=== PATIENT | male | born 1960 | race Caucasian/White ===

== ENCOUNTER 2022-06-14 11:00 | Observation (INO) ==
[2022-06-14 11:48] LABS: Basophils # 0.1 10*3/uL (0.0-0.2); Basophils % 0.7 % (0.0-0.8); Hematocrit 34.3 VOL% (42.0-52.0); Hemoglobin 11.2 GM/DL (14.0-18.0); Immature Granulocytes % 0.6 %; Immature Granulocytes Absolute 0.08 #; Lymphocytes # 1.7 10*3/uL (1.4-4.0); Lymphocytes % 12.8 % (21.2-54.2); Mean Corpuscular HGB Conc 32.7 GM/DL (32-36); Mean Corpuscular Volume 98.3 FL (87-102); Mean Platelet Volume 9.2 FL (9.6-12.0); Monocytes % 7.7 % (1.7-12.7); Neutrophils % 78.2 % (38.7-73.9); Platelet Count 443 T/CUMM (130-400); Red Blood Count 3.49 MC/CUMM (3.8-5.5); Red Cell Distribution Width 13.5 % (9.3-17.3); White Blood Count 13.5 T/CUMM (4-12)
[2022-06-14 12:37] LABS: Alanine Aminotransferase 53 U/L (16-61); Alkaline Phosphatase 212 U/L (45-117); Aspartate Amino Transferase 88 U/L (0-37); Blood Urea Nitrogen 22 MG/DL (7-18); Calcium 8.4 MG/DL (8.5-10.1); Carbon Dioxide 17 MMOL/L (21-32); Chloride 100 MMOL/L (98-107); Glucose 150 MG/DL (74-106); Osmolality,Calculated 280.7 MOS/KG (273-304); Potassium 4.8 MMOL/L (3.5-5.1); Sodium 138 MMOL/L (136-145); Total Protein 8.3 G/DL (6.4-8.2); Uric Acid 15.6 MG/DL (3.5-7.2)
[2022-06-14] MEDS ORDERED: SODIUM CHLORIDE 0.9% 2,000 ML IV STA (13:33)
[2022-06-14] MEDS ORDERED: THIAMINE 200 MG/2 ML VIAL IV STA (14:48)
[2022-06-14] MEDS ORDERED: GLUCAGON 1 MG VIAL IM PRN (15:29)
[2022-06-14] MEDS ORDERED: ACETAMINOPHEN 325 MG TABLET PO PRN (15:29)
[2022-06-14] MEDS ORDERED: ONDANSETRON 4 MG/2 ML VIAL IV PRN (15:29)
[2022-06-14] MEDS ORDERED: MULTIVITAMIN IV SCH (15:30)
[2022-06-14] MEDS ORDERED: SODIUM CHLORIDE 0.9% IV SCH (15:30)
[2022-06-14] MEDS ORDERED: THIAMINE IV SCH (15:30)
[2022-06-14] MEDS ORDERED: COLCHICINE 0.6 MG CAPSULE PO ONE (15:32)
[2022-06-14] MEDS ORDERED: ENOXAPARIN 40 MG/0.4 ML SYRINGE SUBCUT SCH (16:00)
[2022-06-14] MEDS ORDERED: THIAMINE INJ 100 MG in SODIUM CHLORIDE 0.9% 1,000 ML IV SCH (16:00)
[2022-06-14] MEDS ORDERED: DEXTROSE 10% 250 ML BAG IV PRN (16:05)
[2022-06-14] MEDS: LORazepam 1 MG TABLET PO PRN (16:52)
[2022-06-14] MEDS: [UNRECOGNIZED DRUG - OTHER] IV SCH ×2 (19:43→22:34)
[2022-06-14] MEDS: THIAMINE 100 MG IV SCH ×2 (19:43→22:34)
[2022-06-14] MEDS: SODIUM CHLORIDE 0.9% IV SCH ×2 (19:43→22:34)
[2022-06-14] MEDS ORDERED: MELATONIN 3 MG TABLET PO PRN (20:14)
[2022-06-14] MEDS: predniSONE 10 MG TABLET PO SCH (20:45)
[2022-06-15 05:05] LABS: Bacteria,Urine Occasional /HPF (Few); Hyaline Casts,Urine 3 /LPF (0-3); Mucus,Urine Occasional /LPF (Occasional); RBC,Urine <1 /HPF (0-4); Squamous Epithelial Cell,Urine Occasional /HPF (0-10)
[2022-06-15 05:08] LABS: Bilirubin,Urine Small mg/dL (Negative); Blood, Urine Trace mg/dL (Negative); Glucose,Urine (UA) Negative (Negative); Ketones,Urine 15 mg/dL (Negative); Nitrite,Urine Negative (Negative); Protein,Urine Negative (Negative); Urine Appearance Clear (Clear); Urine Color Yellow (Yellow); Urine Specific Gravity 1.015 (1.001-1.035); Urine pH 5.5 (4.5-8.0)
[2022-06-15 06:15] LABS: Basophils % 0.4 % (0.0-0.8); Eosinophils % 0.1 % (0.00-10.9); Hematocrit 24.2 VOL% (42.0-52.0); Immature Granulocytes % 0.5 %; Immature Granulocytes Absolute 0.05 #; Lymphocytes # 0.7 10*3/uL (1.4-4.0); Lymphocytes % 7.8 % (21.2-54.2); Mean Corpuscular HGB Conc 33.1 GM/DL (32-36); Mean Corpuscular Volume 97.2 FL (87-102); Mean Platelet Volume 9.4 FL (9.6-12.0); Monocytes # 0.7 10*3/uL (0.11-0.8); Monocytes % 8.1 % (1.7-12.7); Neutrophils % 83.1 % (38.7-73.9); Platelet Count 237 T/CUMM (130-400); Red Blood Count 2.49 MC/CUMM (3.8-5.5); Red Cell Distribution Width 13.7 % (9.3-17.3); White Blood Count 9.1 T/CUMM (4-12)
[2022-06-15 06:44] LABS: Osmolality,Calculated 273.2 MOS/KG (273-304); Risk Ratio 4.19
[2022-06-15] MEDS: predniSONE 10 MG TABLET PO SCH (08:06)
[2022-06-15] MEDS: [UNRECOGNIZED DRUG - OTHER] IV SCH (08:11)
[2022-06-15] MEDS: THIAMINE 100 MG IV SCH (08:11)
[2022-06-15] MEDS: SODIUM CHLORIDE 0.9% IV SCH (08:11)
[2022-06-15 08:14] VITALS: BP 149/81
[2022-06-15] MEDS ORDERED: PANTOPRAZOLE 40 MG TABLET PO SCH (09:00)
[2022-06-15] MEDS ORDERED: atenoloL 50 MG TABLET PO SCH (09:00)
[2022-06-15] MEDS ORDERED: COLCHICINE 0.6 MG CAPSULE PO SCH (09:00)
[2022-06-15] MEDS: LORazepam 1 MG TABLET PO PRN (09:10)
[2022-06-15 10:22] LABS: Basophils % 0.2 % (0.0-0.8); Eosinophils % 0.1 % (0.00-10.9); Hemoglobin 8.1 GM/DL (14.0-18.0); Immature Granulocytes % 0.6 %; Immature Granulocytes Absolute 0.06 #; Lymphocytes # 0.8 10*3/uL (1.4-4.0); Lymphocytes % 8.4 % (21.2-54.2); Mean Corpuscular HGB Conc 32.4 GM/DL (32-36); Mean Corpuscular Volume 99.6 FL (87-102); Mean Platelet Volume 9.2 FL (9.6-12.0); Monocytes # 0.7 10*3/uL (0.11-0.8); Monocytes % 7.6 % (1.7-12.7); Neutrophils % 83.1 % (38.7-73.9); Platelet Count 237 T/CUMM (130-400); Red Blood Count 2.51 MC/CUMM (3.8-5.5); Red Cell Distribution Width 13.6 % (9.3-17.3); White Blood Count 9.5 T/CUMM (4-12)
== END 2022-06-15 12:33 | disposition home or self-care (01) ==
LOC: N.ED 11:00 → SUATTDRO 15:29 → N.EDINP 15:29 → INTOOBSV 15:29 → N.5E 16:56
PROVIDERS: ADMIT Emergency Medicine; ATTEND Internal Medicine

== ENCOUNTER 2022-12-10 14:39 | Inpatient (IN) ==
[2022-12-10] MEDS ORDERED: SODIUM CHLORIDE 0.9% 1,000 ML IV STA ×2 (15:37→18:17)
[2022-12-10 16:21] LABS: Basophils % 0.1 % (0.0-0.8); Eosinophils % 0.1 % (0.00-10.9); Hematocrit 22.4 VOL% (42.0-52.0); Hemoglobin 7.2 GM/DL (14.0-18.0); Immature Granulocytes % 1.4 %; Immature Granulocytes Absolute 0.24 #; Lymphocytes % 5.8 % (21.2-54.2); Mean Corpuscular HGB Conc 32.1 GM/DL (32-36); Mean Corpuscular Volume 98.2 FL (87-102); Mean Platelet Volume 10.9 FL (9.6-12.0); Monocytes # 0.2 10*3/uL (0.11-0.8); Monocytes % 1.4 % (1.7-12.7); Neutrophils % 91.2 % (38.7-73.9); Platelet Count 188 T/CUMM (130-400); Red Blood Count 2.28 MC/CUMM (3.8-5.5); Red Cell Distribution Width 15.9 % (9.3-17.3); White Blood Count 17.2 T/CUMM (4-12)
[2022-12-10 16:26] LABS: Bilirubin,Urine Moderate mg/dL (Negative); Blood, Urine Large mg/dL (Negative); Glucose,Urine (UA) Negative (Negative); Ketones,Urine 15 mg/dL (Negative); Nitrite,Urine Negative (Negative); Protein,Urine 100 mg/dL (Negative); Urine Appearance Clear (Clear); Urine Color Dark yellow (Yellow); Urine Urobilinogen 0.2 eU/dL (<2.0); Urine pH 5.5 (4.5-8.0)
[2022-12-10 16:31] LABS: Mucus,Urine Occasional /LPF (Occasional); RBC,Urine 76 /HPF (0-4); Squamous Epithelial Cell,Urine Occasional /HPF (0-10)
[2022-12-10 16:41] LABS: Calcium 7.9 MG/DL (8.5-10.1); Osmolality,Calculated 284.5 MOS/KG (273-304); Potassium 3.1 MMOL/L (3.5-5.1)
[2022-12-10] MEDS ORDERED: LIDOCAINE 2% TOP JELLY 20 ML VIAL INTRAURETH ONE (17:07)
[2022-12-10 17:12] LABS: Band Neutrophils 2 % (0-10); Lymphocytes 3 % (20-55); Nucleated Red Blood Cells 1 /100 WBC (0-5); Total Cells Counted 100
[2022-12-10 17:13] LABS: Platelet Estimate Adequate
[2022-12-10] MEDS ORDERED: SODIUM CHLORIDE 0.9% 1,000 ML IV PRN (17:30)
[2022-12-10] MEDS ORDERED: POTASSIUM CHLORIDE 20 MEQ TABLET PO STA (17:32)
[2022-12-10] MEDS ORDERED: SIMETHICONE CHEW 125 MG TABLET PO PRN (17:56)
[2022-12-10] MEDS ORDERED: CALCIUM CARBONATE CHEW 500 MG TABLET PO PRN (17:56)
[2022-12-10] MEDS ORDERED: LACTULOSE 20 GM/30 ML UDCUP PO PRN (17:56)
[2022-12-10] MEDS ORDERED: BISACODYL 5 MG TABLET PO PRN (17:56)
[2022-12-10] MEDS ORDERED: ONDANSETRON 4 MG/2 ML VIAL IV PRN (17:56)
[2022-12-10] MEDS ORDERED: ALUMINUM/MAGNES/SIMETH MAX STR 30 ML UDCUP PO PRN (17:56)
[2022-12-10] MEDS ORDERED: SODIUM BICARBONATE 50 MEQ/50 ML VIAL IV STA (18:06)
[2022-12-10] MEDS ORDERED: MAGNESIUM SULF RIDER 2 GM/50 ML PREMIX IV PRN (18:07)
[2022-12-10] MEDS ORDERED: POTASSIUM CHLORIDE RIDER 10 MEQ/100 ML PREMIX IV PRN (18:07)
[2022-12-10] MEDS ORDERED: MAGNESIUM SULF RIDER 4 GM/100 ML PREMIX IV PRN (18:07)
[2022-12-10 18:23] LABS: Albumin 2.4 G/DL (3.4-5.0); Bilirubin,Direct 0.72 MG/DL (0.0-0.20); Bilirubin,Indirect 0.5 MG/DL (0.0-1.0); Bilirubin,Total 1.2 MG/DL (0.20-1.00); Total Protein 5.8 G/DL (6.4-8.2)
[2022-12-10 18:36] LABS: % Iron Saturation 88.5 % (18-50)
[2022-12-10] MEDS: cefTRIAXone 1,000 MG in SODIUM CHLORIDE 0.9% 100 ML IV SCH (18:36)
[2022-12-10 18:45] LABS: 25 Hydroxy Vitamin D Total 14.2 NG/ML (30-100); Folate 0.64 NG/ML (5.38-24.0)
[2022-12-10] MEDS: DOCUSATE SODIUM 100 MG CAPSULE PO SCH (21:00)
[2022-12-11 07:07] LABS: Basophils % 0.1 % (0.0-0.8); Eosinophils # 0.1 10*3/uL (0.0-0.87); Eosinophils % 0.6 % (0.00-10.9); Hematocrit 24.1 VOL% (42.0-52.0); Hemoglobin 8.1 GM/DL (14.0-18.0); Immature Granulocytes % 0.5 %; Immature Granulocytes Absolute 0.05 #; Lymphocytes % 10.6 % (21.2-54.2); Mean Corpuscular HGB Conc 33.6 GM/DL (32-36); Mean Corpuscular Volume 91.3 FL (87-102); Mean Platelet Volume 10.5 FL (9.6-12.0); Monocytes # 0.1 10*3/uL (0.11-0.8); Monocytes % 1.5 % (1.7-12.7); Neutrophils % 86.7 % (38.7-73.9); Platelet Count 126 T/CUMM (130-400); Red Blood Count 2.64 MC/CUMM (3.8-5.5); Red Cell Distribution Width 15.7 % (9.3-17.3); White Blood Count 9.3 T/CUMM (4-12)
[2022-12-11 07:28] LABS: Anisocytosis 1+; Band Neutrophils 18 % (0-10); Eosinophils 1 % (0-10); Lymphocytes 10 % (20-55); Platelet Estimate Adequate; Total Cells Counted 100
[2022-12-11 07:29] LABS: Hypochromia Slight; Macrocytosis Slight
[2022-12-11 07:31] LABS: Calcium 7.3 MG/DL (8.5-10.1); Osmolality,Calculated 286.1 MOS/KG (273-304); Potassium 3.1 MMOL/L (3.5-5.1); Risk Ratio 3.45; Thyroid Stimulating Hormone 3.14 uIU/ml (0.358-3.74); VLDL Cholesterol 19.4 MG/DL
[2022-12-11] MEDS: PANTOPRAZOLE 40 MG VIAL IV SCH (08:24)
[2022-12-11] MEDS: LORazepam 2 MG/1 ML VIAL IV PRN ×2 (08:24→21:06)
[2022-12-11] MEDS: DOCUSATE SODIUM 100 MG CAPSULE PO SCH ×2 (08:25→21:00)
[2022-12-11] MEDS ORDERED: PANTOPRAZOLE 40 MG TABLET PO SCH (09:00)
[2022-12-11] MEDS ORDERED: POTASSIUM CHLORIDE 20 MEQ TABLET PO ONE (09:30)
[2022-12-11] MEDS: SODIUM CHLOR 0.9% KCL 20 MEQ 20 MEQ/1,000 ML BAG IV SCH ×2 (09:36→23:01)
[2022-12-11] MEDS: CHOLECALCIFEROL 1,000 UNIT TABLET PO SCH (09:36)
[2022-12-11] MEDS: FOLIC ACID 1 MG TABLET PO SCH (09:36)
[2022-12-11] MEDS: cefTRIAXone 1,000 MG in SODIUM CHLORIDE 0.9% 100 ML IV SCH (18:11)
[2022-12-12 06:15] LABS: Basophils % 0.2 % (0.0-0.8); Eosinophils # 0.1 10*3/uL (0.0-0.87); Eosinophils % 0.9 % (0.00-10.9); Hematocrit 24.7 VOL% (42.0-52.0); Hemoglobin 8.3 GM/DL (14.0-18.0); Immature Granulocytes % 0.9 %; Immature Granulocytes Absolute 0.06 #; Lymphocytes # 0.8 10*3/uL (1.4-4.0); Lymphocytes % 11.8 % (21.2-54.2); Mean Corpuscular HGB Conc 33.6 GM/DL (32-36); Mean Corpuscular Volume 91.8 FL (87-102); Mean Platelet Volume 10.4 FL (9.6-12.0); Monocytes # 0.1 10*3/uL (0.11-0.8); Neutrophils % 84.2 % (38.7-73.9); Platelet Count 135 T/CUMM (130-400); Red Blood Count 2.69 MC/CUMM (3.8-5.5); Red Cell Distribution Width 16.3 % (9.3-17.3); White Blood Count 6.5 T/CUMM (4-12)
[2022-12-12 06:27] LABS: Albumin 1.9 G/DL (3.4-5.0); Bilirubin,Total 1.1 MG/DL (0.20-1.00); Calcium 7.8 MG/DL (8.5-10.1); Osmolality,Calculated 278.5 MOS/KG (273-304); Potassium 3.4 MMOL/L (3.5-5.1); Total Protein 5.4 G/DL (6.4-8.2)
[2022-12-12 07:04] LABS: Hepatitis B Surface Ag Quant < 0.10 Index; Hepatitis B Surface Ag Result Non-Reactive (NonReactive); Hepatitis C Virus Ab Quant < 0.02 Index; Hepatitis C Virus Ab Result Non-Reactive (NonReactive)
[2022-12-12 07:15] LABS: Anisocytosis 1+; Platelet Estimate Adequate
[2022-12-12] MEDS ORDERED: MAGNESIUM SULF RIDER 4 GM/100 ML PREMIX IV ONE (09:00)
[2022-12-12] MEDS ORDERED: POTASSIUM CHLORIDE 20 MEQ TABLET PO ONE (09:00)
[2022-12-12] MEDS: CHOLECALCIFEROL 1,000 UNIT TABLET PO SCH (09:09)
[2022-12-12] MEDS: FOLIC ACID 1 MG TABLET PO SCH (09:10)
[2022-12-12] MEDS: PANTOPRAZOLE 40 MG VIAL IV SCH (09:10)
[2022-12-12] MEDS: DOCUSATE SODIUM 100 MG CAPSULE PO SCH ×2 (09:10→21:25)
[2022-12-12] MEDS: LORazepam 2 MG/1 ML VIAL IV PRN ×2 (09:17→21:39)
[2022-12-12] MEDS: POLYETHYLENE GLYCOL POWDER 17 GM PACK PO SCH (14:13)
[2022-12-12] MEDS: LACTULOSE 20 GM/30 ML UDCUP PO SCH ×2 (14:13→21:24)
[2022-12-12] MEDS: SODIUM CHLOR 0.9% KCL 20 MEQ 20 MEQ/1,000 ML BAG IV SCH ×2 (17:46→17:47)
[2022-12-12] MEDS: cefTRIAXone 1,000 MG in SODIUM CHLORIDE 0.9% 100 ML IV SCH (17:48)
[2022-12-13] MEDS: LACTULOSE 20 GM/30 ML UDCUP PO SCH ×2 (04:27→10:43)
[2022-12-13] MEDS: SODIUM CHLOR 0.9% KCL 20 MEQ 20 MEQ/1,000 ML BAG IV SCH (04:28)
[2022-12-13 05:38] LABS: Basophils % 0.4 % (0.0-0.8); Eosinophils # 0.1 10*3/uL (0.0-0.87); Eosinophils % 1.2 % (0.00-10.9); Hematocrit 25.6 VOL% (42.0-52.0); Hemoglobin 8.5 GM/DL (14.0-18.0); Immature Granulocytes % 1.4 %; Immature Granulocytes Absolute 0.07 #; Lymphocytes % 19.1 % (21.2-54.2); Mean Corpuscular HGB Conc 33.2 GM/DL (32-36); Mean Corpuscular Volume 93.4 FL (87-102); Mean Platelet Volume 10.2 FL (9.6-12.0); Monocytes # 0.3 10*3/uL (0.11-0.8); Monocytes % 5.3 % (1.7-12.7); NRBC # 0.02 10*3/uL; Neutrophils % 72.6 % (38.7-73.9); Platelet Count 134 T/CUMM (130-400); Red Blood Count 2.74 MC/CUMM (3.8-5.5); White Blood Count 5.1 T/CUMM (4-12)
[2022-12-13 06:09] LABS: Osmolality,Calculated 274.7 MOS/KG (273-304)
[2022-12-13 06:21] LABS: Platelet Estimate Adequate
[2022-12-13 06:22] LABS: Anisocytosis 1+; Macrocytosis Slight
[2022-12-13] MEDS: THIAMINE 100 MG TABLET PO SCH (08:41)
[2022-12-13] MEDS: ALPRAZolam 0.5 MG TABLET PO SCH (08:41)
[2022-12-13] MEDS: PANTOPRAZOLE 40 MG VIAL IV SCH (08:41)
[2022-12-13] MEDS: FOLIC ACID 1 MG TABLET PO SCH (08:41)
[2022-12-13] MEDS: DOCUSATE SODIUM 100 MG CAPSULE PO SCH ×2 (08:41→20:16)
[2022-12-13] MEDS: atenoloL 50 MG TABLET PO SCH (08:42)
[2022-12-13] MEDS: CHOLECALCIFEROL 1,000 UNIT TABLET PO SCH (08:42)
[2022-12-13] MEDS ORDERED: POLYETHYLENE GLYCOL POWDER 17 GM PACK PO SCH (09:00)
[2022-12-13] MEDS: POLYETHYLENE GLYCOL POWDER 17 GM PACK PO SCH (10:44)
[2022-12-13] MEDS ORDERED: LACTULOSE 20 GM/30 ML UDCUP PO PRN (11:42)
[2022-12-13] MEDS: metroNIDAZOLE INJ 500 MG/100 ML PREMIX IV SCH ×2 (12:59→20:15)
[2022-12-13] MEDS: cefTRIAXone 1,000 MG in SODIUM CHLORIDE 0.9% 100 ML IV SCH (18:03)
[2022-12-13] MEDS: LORazepam 2 MG/1 ML VIAL IV PRN (23:18)
[2022-12-14] MEDS: metroNIDAZOLE INJ 500 MG/100 ML PREMIX IV SCH ×3 (04:23→20:48)
[2022-12-14 05:35] LABS: Basophils % 0.3 % (0.0-0.8); Eosinophils # 0.2 10*3/uL (0.0-0.87); Eosinophils % 1.7 % (0.00-10.9); Hematocrit 23.5 VOL% (42.0-52.0); Immature Granulocytes % 2.2 %; Immature Granulocytes Absolute 0.19 #; Lymphocytes # 1.6 10*3/uL (1.4-4.0); Lymphocytes % 18.1 % (21.2-54.2); Mean Corpuscular Volume 92.5 FL (87-102); Mean Platelet Volume 10.6 FL (9.6-12.0); Monocytes # 0.8 10*3/uL (0.11-0.8); Monocytes % 9.2 % (1.7-12.7); NRBC # 0.03 10*3/uL; Neutrophils % 68.5 % (38.7-73.9); Platelet Count 116 T/CUMM (130-400); Red Blood Count 2.54 MC/CUMM (3.8-5.5); Red Cell Distribution Width 15.9 % (9.3-17.3); White Blood Count 8.6 T/CUMM (4-12)
[2022-12-14 05:53] LABS: Calcium 7.9 MG/DL (8.5-10.1); Osmolality,Calculated 278.3 MOS/KG (273-304); Potassium 3.7 MMOL/L (3.5-5.1)
[2022-12-14 06:01] LABS: Anisocytosis 1+; Macrocytosis 1+; Platelet Estimate Adequate
[2022-12-14] MEDS: PANTOPRAZOLE 40 MG VIAL IV SCH ×2 (08:34→20:49)
[2022-12-14] MEDS: THIAMINE 100 MG TABLET PO SCH (08:34)
[2022-12-14] MEDS: atenoloL 50 MG TABLET PO SCH (08:34)
[2022-12-14] MEDS: FOLIC ACID 1 MG TABLET PO SCH (08:34)
[2022-12-14] MEDS: ALPRAZolam 0.5 MG TABLET PO SCH (08:34)
[2022-12-14] MEDS: DOCUSATE SODIUM 100 MG CAPSULE PO SCH ×2 (08:34→20:49)
[2022-12-14] MEDS: CHOLECALCIFEROL 1,000 UNIT TABLET PO SCH (08:35)
[2022-12-14] MEDS: POLYETHYLENE GLYCOL POWDER 17 GM PACK PO SCH (08:35)
[2022-12-14] MEDS: BISACODYL 5 MG TABLET PO SCH ×2 (12:44→20:49)
[2022-12-14] MEDS ORDERED: POLYETHYLENE GLYCOL POWDER 255 GM BOTTLE PO ONE (18:00)
[2022-12-14] MEDS: cefTRIAXone 1,000 MG in SODIUM CHLORIDE 0.9% 100 ML IV SCH (18:05)
[2022-12-14] MEDS ORDERED: MAGNESIUM HYDROXIDE SUSP 30 ML UDCUP PO ONE (21:00)
[2022-12-15] MEDS: LORazepam 2 MG/1 ML VIAL IV PRN (00:07)
[2022-12-15] MEDS: metroNIDAZOLE INJ 500 MG/100 ML PREMIX IV SCH ×3 (03:58→20:55)
[2022-12-15] MEDS: BISACODYL 5 MG TABLET PO SCH (03:59)
[2022-12-15 06:52] LABS: Basophils % 0.4 % (0.0-0.8); Eosinophils # 0.1 10*3/uL (0.0-0.87); Eosinophils % 0.9 % (0.00-10.9); Hemoglobin 8.8 GM/DL (14.0-18.0); Immature Granulocytes % 4.7 %; Immature Granulocytes Absolute 0.52 #; Lymphocytes # 1.6 10*3/uL (1.4-4.0); Lymphocytes % 14.4 % (21.2-54.2); Mean Corpuscular HGB Conc 32.6 GM/DL (32-36); Mean Corpuscular Volume 93.8 FL (87-102); Mean Platelet Volume 10.4 FL (9.6-12.0); Monocytes # 1.5 10*3/uL (0.11-0.8); Monocytes % 13.5 % (1.7-12.7); NRBC # 0.03 10*3/uL; Neutrophils % 66.1 % (38.7-73.9); Platelet Count 152 T/CUMM (130-400); Red Blood Count 2.88 MC/CUMM (3.8-5.5); Red Cell Distribution Width 16.2 % (9.3-17.3); White Blood Count 11.1 T/CUMM (4-12)
[2022-12-15 07:14] LABS: Albumin 2.1 G/DL (3.4-5.0); Bilirubin,Total 0.9 MG/DL (0.20-1.00); Eosinophils 1 % (0-10); Hypochromia Slight; Lymphocytes 9 % (20-55); Microcytosis Slight; Osmolality,Calculated 272.7 MOS/KG (273-304); Platelet Estimate Adequate; Potassium 2.9 MMOL/L (3.5-5.1); Total Cells Counted 100; Total Protein 6.2 G/DL (6.4-8.2)
[2022-12-15 07:21] LABS: Folate 6.24 NG/ML (5.38-24.0)
[2022-12-15 08:22] LABS: % Iron Saturation 12.1 % (18-50)
[2022-12-15] MEDS ORDERED: POTASSIUM CHLORIDE INJ 40 MEQ in SODIUM CHLORIDE 0.9% 500 ML IV ONE (09:00)
[2022-12-15] MEDS ORDERED: propofoL 200 MG/20 ML VIAL IV ONE ×2 (09:46→10:29)
[2022-12-15] MEDS ORDERED: LIDOCAINE 2% 5 ML VIAL ONE (09:46)
[2022-12-15] MEDS ORDERED: PHENYLEPHRINE 1 MG/10 ML SYRINGE IV ONE (09:56)
[2022-12-15] MEDS ORDERED: PHENYLEPHRINE 10 MG/1 ML VIAL IV ONE (10:23)
[2022-12-15] MEDS ORDERED: SODIUM CHLORIDE 0.9% 100 ML IV ONE (10:25)
[2022-12-15] MEDS: LACTATED RINGERS 1,000 ML IV SCH (10:50)
[2022-12-15] MEDS: FOLIC ACID 1 MG TABLET PO SCH (12:27)
[2022-12-15] MEDS: atenoloL 50 MG TABLET PO SCH (12:27)
[2022-12-15] MEDS: ALPRAZolam 0.5 MG TABLET PO SCH (12:27)
[2022-12-15] MEDS: CHOLECALCIFEROL 1,000 UNIT TABLET PO SCH (12:27)
[2022-12-15] MEDS: THIAMINE 100 MG TABLET PO SCH (12:28)
[2022-12-15] MEDS: POLYETHYLENE GLYCOL POWDER 17 GM PACK PO SCH (12:30)
[2022-12-15] MEDS: DOCUSATE SODIUM 100 MG CAPSULE PO SCH ×2 (12:30→20:58)
[2022-12-15] MEDS: PANTOPRAZOLE 40 MG VIAL IV SCH ×2 (12:36→20:45)
[2022-12-15] MEDS: cefTRIAXone 1,000 MG in SODIUM CHLORIDE 0.9% 100 ML IV SCH (17:15)
[2022-12-16] MEDS: metroNIDAZOLE INJ 500 MG/100 ML PREMIX IV SCH ×3 (04:38→22:39)
[2022-12-16 05:50] LABS: Basophils % 0.2 % (0.0-0.8); Eosinophils # 0.1 10*3/uL (0.0-0.87); Eosinophils % 0.4 % (0.00-10.9); Hematocrit 23.2 VOL% (42.0-52.0); Hemoglobin 7.8 GM/DL (14.0-18.0); Immature Granulocytes % 1.2 %; Immature Granulocytes Absolute 0.14 #; Lymphocytes # 1.7 10*3/uL (1.4-4.0); Mean Corpuscular HGB Conc 33.6 GM/DL (32-36); Mean Corpuscular Volume 94.3 FL (87-102); Mean Platelet Volume 10.8 FL (9.6-12.0); Monocytes # 1.4 10*3/uL (0.11-0.8); Monocytes % 12.2 % (1.7-12.7); Platelet Count 159 T/CUMM (130-400); Red Blood Count 2.46 MC/CUMM (3.8-5.5); Red Cell Distribution Width 16.4 % (9.3-17.3); White Blood Count 11.8 T/CUMM (4-12)
[2022-12-16 06:12] LABS: Albumin 1.8 G/DL (3.4-5.0); Bilirubin,Total 0.7 MG/DL (0.20-1.00); Calcium 7.7 MG/DL (8.5-10.1); Osmolality,Calculated 276.4 MOS/KG (273-304); Potassium 2.9 MMOL/L (3.5-5.1); Total Protein 5.3 G/DL (6.4-8.2)
[2022-12-16 06:24] LABS: Lymphocytes 13 % (20-55); Platelet Estimate Adequate; Total Cells Counted 100
[2022-12-16 06:25] LABS: Hypochromia Slight; Microcytosis Slight
[2022-12-16] MEDS: LACTATED RINGERS 1,000 ML IV SCH ×2 (07:54→10:23)
[2022-12-16] MEDS ORDERED: MAGNESIUM SULF RIDER 2 GM/50 ML PREMIX IV ONE (08:00)
[2022-12-16] MEDS ORDERED: POTASSIUM CHLORIDE INJ 40 MEQ in SODIUM CHLORIDE 0.9% 500 ML IV ONE (09:00)
[2022-12-16] MEDS ORDERED: propofoL 200 MG/20 ML VIAL IV ONE (09:03)
[2022-12-16] MEDS ORDERED: LIDOCAINE 2% 5 ML VIAL ONE (09:03)
[2022-12-16] MEDS ORDERED: SODIUM CHLORIDE 0.9% 1,000 ML IV PRN ×2 (09:14→13:19)
[2022-12-16] MEDS ORDERED: POTASSIUM CHLORIDE 20 MEQ TABLET PO ONE (10:00)
[2022-12-16] MEDS: PANTOPRAZOLE 40 MG VIAL IV SCH (10:24)
[2022-12-16] MEDS: ALPRAZolam 0.5 MG TABLET PO SCH (10:35)
[2022-12-16] MEDS: FOLIC ACID 1 MG TABLET PO SCH (10:36)
[2022-12-16] MEDS: atenoloL 50 MG TABLET PO SCH (10:37)
[2022-12-16] MEDS: CHOLECALCIFEROL 1,000 UNIT TABLET PO SCH (10:39)
[2022-12-16] MEDS: DOCUSATE SODIUM 100 MG CAPSULE PO SCH ×2 (10:40→22:39)
[2022-12-16] MEDS: THIAMINE 100 MG TABLET PO SCH (10:41)
[2022-12-16] MEDS: POLYETHYLENE GLYCOL POWDER 17 GM PACK PO SCH (10:41)
[2022-12-16] MEDS: cefTRIAXone 1,000 MG in SODIUM CHLORIDE 0.9% 100 ML IV SCH (17:45)
[2022-12-16] MEDS: PANTOPRAZOLE 40 MG TABLET PO SCH (17:51)
[2022-12-17] MEDS: metroNIDAZOLE INJ 500 MG/100 ML PREMIX IV SCH ×3 (04:24→20:05)
[2022-12-17 05:49] LABS: Basophils % 0.2 % (0.0-0.8); Eosinophils % 0.2 % (0.00-10.9); Hematocrit 29.9 VOL% (42.0-52.0); Hemoglobin 10.3 GM/DL (14.0-18.0); Immature Granulocytes % 0.8 %; Immature Granulocytes Absolute 0.11 #; Lymphocytes # 0.6 10*3/uL (1.4-4.0); Lymphocytes % 4.5 % (21.2-54.2); Mean Corpuscular HGB Conc 34.4 GM/DL (32-36); Mean Corpuscular Volume 92.6 FL (87-102); Mean Platelet Volume 10.4 FL (9.6-12.0); Monocytes # 0.8 10*3/uL (0.11-0.8); Monocytes % 5.8 % (1.7-12.7); Neutrophils % 88.5 % (38.7-73.9); Platelet Count 245 T/CUMM (130-400); Red Blood Count 3.23 MC/CUMM (3.8-5.5)
[2022-12-17 06:08] LABS: Hypochromia Slight; Lymphocytes 5 % (20-55); Platelet Estimate Adequate; Total Cells Counted 100
[2022-12-17 06:11] LABS: Osmolality,Calculated 271.7 MOS/KG (273-304); Potassium 2.8 MMOL/L (3.5-5.1)
[2022-12-17] MEDS ORDERED: POTASSIUM CHLORIDE 20 MEQ TABLET PO ONE ×3 (08:07→14:00)
[2022-12-17] MEDS: THIAMINE 100 MG TABLET PO SCH (08:58)
[2022-12-17] MEDS: PANTOPRAZOLE 40 MG TABLET PO SCH ×2 (08:58→16:32)
[2022-12-17] MEDS: MAGNESIUM OXIDE 400 MG TABLET PO SCH ×2 (08:59→20:05)
[2022-12-17] MEDS: FOLIC ACID 1 MG TABLET PO SCH (08:59)
[2022-12-17] MEDS: DOCUSATE SODIUM 100 MG CAPSULE PO SCH ×2 (08:59→20:05)
[2022-12-17] MEDS: atenoloL 50 MG TABLET PO SCH (08:59)
[2022-12-17] MEDS: ALPRAZolam 0.5 MG TABLET PO SCH (08:59)
[2022-12-17] MEDS: CHOLECALCIFEROL 1,000 UNIT TABLET PO SCH (08:59)
[2022-12-17] MEDS: POLYETHYLENE GLYCOL POWDER 17 GM PACK PO SCH (09:10)
[2022-12-17] MEDS: LACTATED RINGERS 1,000 ML IV SCH ×2 (10:27→10:28)
[2022-12-17] MEDS: cefTRIAXone 1,000 MG in SODIUM CHLORIDE 0.9% 100 ML IV SCH (18:11)
[2022-12-18] MEDS: metroNIDAZOLE INJ 500 MG/100 ML PREMIX IV SCH ×3 (04:00→19:20)
[2022-12-18 05:09] LABS: Basophils # 0.1 10*3/uL (0.0-0.2); Basophils % 0.5 % (0.0-0.8); Eosinophils % 0.2 % (0.00-10.9); Hematocrit 27.6 VOL% (42.0-52.0); Hemoglobin 9.2 GM/DL (14.0-18.0); Immature Granulocytes % 0.6 %; Immature Granulocytes Absolute 0.07 #; Lymphocytes # 1.2 10*3/uL (1.4-4.0); Lymphocytes % 10.8 % (21.2-54.2); Mean Corpuscular HGB Conc 33.3 GM/DL (32-36); Mean Corpuscular Volume 92.6 FL (87-102); Mean Platelet Volume 10.1 FL (9.6-12.0); Monocytes # 0.8 10*3/uL (0.11-0.8); Monocytes % 7.6 % (1.7-12.7); Neutrophils % 80.3 % (38.7-73.9); Platelet Count 261 T/CUMM (130-400); Red Blood Count 2.98 MC/CUMM (3.8-5.5); Red Cell Distribution Width 15.9 % (9.3-17.3); White Blood Count 11.1 T/CUMM (4-12)
[2022-12-18 05:31] LABS: Calcium 7.7 MG/DL (8.5-10.1); Osmolality,Calculated 273.5 MOS/KG (273-304); Potassium 3.4 MMOL/L (3.5-5.1)
[2022-12-18] MEDS ORDERED: POTASSIUM CHLORIDE 20 MEQ TABLET PO ONE (08:00)
[2022-12-18] MEDS: DOCUSATE SODIUM 100 MG CAPSULE PO SCH ×2 (08:17→20:00)
[2022-12-18] MEDS: PANTOPRAZOLE 40 MG TABLET PO SCH ×2 (08:17→16:06)
[2022-12-18] MEDS: FOLIC ACID 1 MG TABLET PO SCH (08:18)
[2022-12-18] MEDS: POLYETHYLENE GLYCOL POWDER 17 GM PACK PO SCH (08:18)
[2022-12-18] MEDS: atenoloL 50 MG TABLET PO SCH (08:18)
[2022-12-18] MEDS: MAGNESIUM OXIDE 400 MG TABLET PO SCH ×3 (08:18→20:00)
[2022-12-18] MEDS: THIAMINE 100 MG TABLET PO SCH (08:18)
[2022-12-18] MEDS: CHOLECALCIFEROL 1,000 UNIT TABLET PO SCH (08:19)
[2022-12-18] MEDS: ALPRAZolam 0.5 MG TABLET PO SCH (08:19)
[2022-12-18] MEDS: ALBUTEROL/IPRATROPIUM 3 ML NEB RESP TX SCH ×3 (13:25→19:42)
[2022-12-19] MEDS: ALBUTEROL/IPRATROPIUM 3 ML NEB RESP TX SCH ×4 (00:25→19:42)
[2022-12-19] MEDS: metroNIDAZOLE INJ 500 MG/100 ML PREMIX IV SCH ×3 (03:00→20:56)
[2022-12-19 05:53] LABS: Basophils % 0.5 % (0.0-0.8); Eosinophils % 0.1 % (0.00-10.9); Hematocrit 25.3 VOL% (42.0-52.0); Hemoglobin 8.5 GM/DL (14.0-18.0); Immature Granulocytes % 0.6 %; Immature Granulocytes Absolute 0.05 #; Lymphocytes % 12.8 % (21.2-54.2); Mean Corpuscular HGB Conc 33.6 GM/DL (32-36); Mean Corpuscular Volume 91.7 FL (87-102); Mean Platelet Volume 10.2 FL (9.6-12.0); Monocytes # 0.5 10*3/uL (0.11-0.8); Monocytes % 6.3 % (1.7-12.7); Neutrophils % 79.7 % (38.7-73.9); Platelet Count 290 T/CUMM (130-400); Red Blood Count 2.76 MC/CUMM (3.8-5.5); Red Cell Distribution Width 15.8 % (9.3-17.3); White Blood Count 8.1 T/CUMM (4-12)
[2022-12-19 06:13] LABS: Calcium 7.4 MG/DL (8.5-10.1); Osmolality,Calculated 269.8 MOS/KG (273-304); Potassium 2.9 MMOL/L (3.5-5.1)
[2022-12-19] MEDS ORDERED: MAGNESIUM SULF RIDER 4 GM/100 ML PREMIX IV ONE (07:30)
[2022-12-19] MEDS ORDERED: POTASSIUM CHLORIDE 20 MEQ TABLET PO ONE ×2 (07:30→10:00)
[2022-12-19 07:37] LABS: Platelet Estimate Normal
[2022-12-19 07:39] LABS: Anisocytosis 1+
[2022-12-19] MEDS: THIAMINE 100 MG TABLET PO SCH (09:17)
[2022-12-19] MEDS: atenoloL 50 MG TABLET PO SCH (09:17)
[2022-12-19] MEDS: FOLIC ACID 1 MG TABLET PO SCH (09:17)
[2022-12-19] MEDS: ALPRAZolam 0.5 MG TABLET PO SCH (09:17)
[2022-12-19] MEDS: CHOLECALCIFEROL 1,000 UNIT TABLET PO SCH (09:18)
[2022-12-19] MEDS: PANTOPRAZOLE 40 MG TABLET PO SCH ×2 (09:18→15:52)
[2022-12-19] MEDS: POLYETHYLENE GLYCOL POWDER 17 GM PACK PO SCH (10:33)
[2022-12-19] MEDS: DOCUSATE SODIUM 100 MG CAPSULE PO SCH ×2 (10:33→20:56)
[2022-12-19] MEDS: ZALEPLON 5 MG CAPSULE PO PRN (20:55)
[2022-12-19] MEDS: POTASSIUM CHLORIDE 20 MEQ TABLET PO SCH (20:55)
[2022-12-19] MEDS: ACETAMINOPHEN 325 MG TABLET PO PRN (20:56)
[2022-12-20] MEDS: ALBUTEROL/IPRATROPIUM 3 ML NEB RESP TX SCH ×4 (02:08→19:13)
[2022-12-20] MEDS: metroNIDAZOLE INJ 500 MG/100 ML PREMIX IV SCH (03:25)
[2022-12-20 04:43] LABS: Basophils % 0.4 % (0.0-0.8); Eosinophils % 0.4 % (0.00-10.9); Hematocrit 27.9 VOL% (42.0-52.0); Hemoglobin 9.2 GM/DL (14.0-18.0); Immature Granulocytes % 0.7 %; Immature Granulocytes Absolute 0.05 #; Lymphocytes # 1.3 10*3/uL (1.4-4.0); Mean Corpuscular Volume 93.9 FL (87-102); Mean Platelet Volume 10.1 FL (9.6-12.0); Monocytes # 0.4 10*3/uL (0.11-0.8); Monocytes % 5.8 % (1.7-12.7); Neutrophils % 73.7 % (38.7-73.9); Platelet Count 318 T/CUMM (130-400); Red Blood Count 2.97 MC/CUMM (3.8-5.5); Red Cell Distribution Width 16.1 % (9.3-17.3)
[2022-12-20 05:00] LABS: Calcium 8.2 MG/DL (8.5-10.1); Potassium 3.5 MMOL/L (3.5-5.1)
[2022-12-20] MEDS: atenoloL 50 MG TABLET PO SCH (09:43)
[2022-12-20] MEDS: POTASSIUM CHLORIDE 20 MEQ TABLET PO SCH ×2 (09:44→21:08)
[2022-12-20] MEDS: CHOLECALCIFEROL 1,000 UNIT TABLET PO SCH (09:44)
[2022-12-20] MEDS: ALPRAZolam 0.5 MG TABLET PO SCH (09:44)
[2022-12-20] MEDS: THIAMINE 100 MG TABLET PO SCH (09:44)
[2022-12-20] MEDS: PANTOPRAZOLE 40 MG TABLET PO SCH ×2 (09:44→17:43)
[2022-12-20] MEDS: FOLIC ACID 1 MG TABLET PO SCH (09:44)
[2022-12-20] MEDS: DOCUSATE SODIUM 100 MG CAPSULE PO SCH ×2 (09:45→21:09)
[2022-12-20] MEDS: POLYETHYLENE GLYCOL POWDER 17 GM PACK PO SCH (09:45)
[2022-12-20] MEDS: ACETAMINOPHEN 325 MG TABLET PO PRN (19:38)
[2022-12-20] MEDS: ZALEPLON 5 MG CAPSULE PO PRN (21:08)
[2022-12-21] MEDS: ACETAMINOPHEN 325 MG TABLET PO PRN ×2 (03:51→22:38)
[2022-12-21] MEDS: ALBUTEROL/IPRATROPIUM 3 ML NEB RESP TX SCH ×6 (07:25→23:44)
[2022-12-21 08:13] LABS: Basophils % 0.5 % (0.0-0.8); Eosinophils # 0.1 10*3/uL (0.0-0.87); Eosinophils % 0.8 % (0.00-10.9); Hematocrit 27.3 VOL% (42.0-52.0); Hemoglobin 9.2 GM/DL (14.0-18.0); Immature Granulocytes % 0.9 %; Immature Granulocytes Absolute 0.06 #; Lymphocytes # 0.8 10*3/uL (1.4-4.0); Lymphocytes % 12.2 % (21.2-54.2); Mean Corpuscular HGB Conc 33.7 GM/DL (32-36); Mean Corpuscular Volume 91.9 FL (87-102); Monocytes # 0.3 10*3/uL (0.11-0.8); Monocytes % 3.9 % (1.7-12.7); Neutrophils % 81.7 % (38.7-73.9); Platelet Count 294 T/CUMM (130-400); Red Blood Count 2.97 MC/CUMM (3.8-5.5); Red Cell Distribution Width 15.8 % (9.3-17.3); White Blood Count 6.64 T/CUMM (4-12)
[2022-12-21 08:43] LABS: Calcium 8.1 MG/DL (8.5-10.1); Osmolality,Calculated 269.8 MOS/KG (273-304); Potassium 3.7 MMOL/L (3.5-5.1)
[2022-12-21] MEDS ORDERED: MAGNESIUM SULF RIDER 2 GM/50 ML PREMIX IV ONE (09:04)
[2022-12-21] MEDS: DOCUSATE SODIUM 100 MG CAPSULE PO SCH ×2 (09:40→22:39)
[2022-12-21] MEDS: CHOLECALCIFEROL 1,000 UNIT TABLET PO SCH (09:40)
[2022-12-21] MEDS: PANTOPRAZOLE 40 MG TABLET PO SCH ×2 (09:40→15:47)
[2022-12-21] MEDS: POTASSIUM CHLORIDE 20 MEQ TABLET PO SCH ×2 (09:40→22:38)
[2022-12-21] MEDS: THIAMINE 100 MG TABLET PO SCH (09:40)
[2022-12-21] MEDS: POLYETHYLENE GLYCOL POWDER 17 GM PACK PO SCH (09:40)
[2022-12-21] MEDS: atenoloL 50 MG TABLET PO SCH (09:40)
[2022-12-21] MEDS: FOLIC ACID 1 MG TABLET PO SCH (09:40)
[2022-12-21 09:52] LABS: Bacteria,Urine Occasional /HPF (Few); Bilirubin,Urine Negative (Negative); Blood, Urine Small mg/dL (Negative); Glucose,Urine (UA) Negative (Negative); Ketones,Urine Negative (Negative); Nitrite,Urine Negative (Negative); Protein,Urine Negative (Negative); RBC,Urine <1 /HPF (0-4); Squamous Epithelial Cell,Urine Occasional /HPF (0-10); Urine Appearance Clear (Clear); Urine Color Yellow (Yellow); Urine Urobilinogen 0.2 eU/dL (<2.0)
[2022-12-21] MEDS ORDERED: PIPERACILLIN/TAZOBACTAM 3,375 MG in SODIUM CHLORIDE 0.9% 100 ML IV SCH (10:00)
[2022-12-21] MEDS ORDERED: SODIUM CHLORIDE 0.9% 1,000 ML IV SCH (13:00)
[2022-12-21] MEDS ORDERED: FAMOTIDINE 20 MG TABLET PO SCH (13:00)
[2022-12-21] MEDS ORDERED: AZITHROMYCIN INJ 500 MG in SODIUM CHLORIDE 0.9% 250 ML IV SCH (14:00)
[2022-12-21] MEDS ORDERED: VANCOMYCIN INJ 1,250 MG in SODIUM CHLORIDE 0.9% 250 ML IV SCH (15:00)
[2022-12-21] MEDS ORDERED: REMDESIVIR 200 MG in SODIUM CHLORIDE 0.9% 210 ML IV ONE (15:00)
[2022-12-21] MEDS: CETIRIZINE 10 MG TABLET PO SCH (15:48)
[2022-12-21] MEDS: ZINC GLUCONATE 50 MG TABLET PO SCH (15:48)
[2022-12-21] MEDS: ASCORBIC ACID 500 MG TABLET PO SCH ×2 (15:48→22:38)
[2022-12-21] MEDS: DEXAMETHASONE 4 MG/1 ML VIAL IV SCH (15:59)
[2022-12-21] MEDS: MELATONIN 3 MG TABLET PO PRN ×2 (22:38→22:39)
[2022-12-22 05:26] LABS: Basophils % 0.3 % (0.0-0.8); Hematocrit 29.3 VOL% (42.0-52.0); Hemoglobin 9.6 GM/DL (14.0-18.0); Immature Granulocytes % 0.7 %; Immature Granulocytes Absolute 0.04 #; Lymphocytes # 0.7 10*3/uL (1.4-4.0); Lymphocytes % 12.4 % (21.2-54.2); Mean Corpuscular HGB Conc 32.8 GM/DL (32-36); Monocytes # 0.3 10*3/uL (0.11-0.8); Monocytes % 4.4 % (1.7-12.7); Neutrophils % 82.2 % (38.7-73.9); Platelet Count 318 T/CUMM (130-400); Red Blood Count 3.15 MC/CUMM (3.8-5.5); Red Cell Distribution Width 15.9 % (9.3-17.3)
[2022-12-22 05:57] LABS: Bilirubin,Direct 0.37 MG/DL (0.0-0.20); Bilirubin,Indirect 0.3 MG/DL (0.0-1.0); Bilirubin,Total 0.7 MG/DL (0.20-1.00); Total Protein 6.4 G/DL (6.4-8.2)
[2022-12-22 05:58] LABS: Albumin 1.9 G/DL (3.4-5.0); Bilirubin,Total 0.7 MG/DL (0.20-1.00); Calcium 7.8 MG/DL (8.5-10.1); Osmolality,Calculated 274.5 MOS/KG (273-304); Potassium 4.7 MMOL/L (3.5-5.1); Total Protein 5.7 G/DL (6.4-8.2)
[2022-12-22 06:00] LABS: Ferritin 3242.2 ng/mL (26-388)
[2022-12-22 06:38] LABS: Sedimentation Rate-Westergren 111 MM/HR (0-20)
[2022-12-22] MEDS: ALBUTEROL/IPRATROPIUM 3 ML NEB RESP TX SCH ×3 (06:58→19:40)
[2022-12-22] MEDS: DEXAMETHASONE 4 MG/1 ML VIAL IV SCH (08:42)
[2022-12-22] MEDS: CHOLECALCIFEROL 1,000 UNIT TABLET PO SCH (08:43)
[2022-12-22] MEDS: THIAMINE 100 MG TABLET PO SCH (08:43)
[2022-12-22] MEDS: FOLIC ACID 1 MG TABLET PO SCH (08:43)
[2022-12-22] MEDS: POLYETHYLENE GLYCOL POWDER 17 GM PACK PO SCH (08:43)
[2022-12-22] MEDS: CETIRIZINE 10 MG TABLET PO SCH (08:43)
[2022-12-22] MEDS: ZINC GLUCONATE 50 MG TABLET PO SCH (08:43)
[2022-12-22] MEDS: ASCORBIC ACID 500 MG TABLET PO SCH ×2 (08:44→21:03)
[2022-12-22] MEDS: REMDESIVIR 100 MG in SODIUM CHLORIDE 0.9% 100 ML IV SCH (08:44)
[2022-12-22] MEDS: DOCUSATE SODIUM 100 MG CAPSULE PO SCH ×2 (08:44→21:03)
[2022-12-22] MEDS: PANTOPRAZOLE 40 MG TABLET PO SCH ×2 (08:44→17:30)
[2022-12-22] MEDS: atenoloL 50 MG TABLET PO SCH (08:44)
[2022-12-22] MEDS: POTASSIUM CHLORIDE 20 MEQ TABLET PO SCH (08:46)
[2022-12-22] MEDS: ALPRAZolam 0.5 MG TABLET PO PRN (21:03)
[2022-12-23] MEDS: ALBUTEROL/IPRATROPIUM 3 ML NEB RESP TX SCH ×3 (00:52→12:45)
[2022-12-23 05:54] LABS: Basophils % 0.3 % (0.0-0.8); Eosinophils % 0.1 % (0.00-10.9); Hematocrit 27.6 VOL% (42.0-52.0); Hemoglobin 9.2 GM/DL (14.0-18.0); Immature Granulocytes % 0.9 %; Immature Granulocytes Absolute 0.06 #; Lymphocytes # 1.2 10*3/uL (1.4-4.0); Lymphocytes % 16.7 % (21.2-54.2); Mean Corpuscular HGB Conc 33.3 GM/DL (32-36); Mean Corpuscular Volume 91.4 FL (87-102); Mean Platelet Volume 10.4 FL (9.6-12.0); Monocytes # 0.4 10*3/uL (0.11-0.8); Monocytes % 5.7 % (1.7-12.7); Neutrophils % 76.3 % (38.7-73.9); Platelet Count 368 T/CUMM (130-400); Red Blood Count 3.02 MC/CUMM (3.8-5.5); Red Cell Distribution Width 15.6 % (9.3-17.3); White Blood Count 7.01 T/CUMM (4-12)
[2022-12-23 06:19] LABS: Band Neutrophils 2 % (0-10); Lymphocytes 17 % (20-55); Total Cells Counted 100
[2022-12-23 06:20] LABS: Hypochromia Slight; Microcytosis Slight
[2022-12-23 06:21] LABS: Platelet Estimate Normal
[2022-12-23 06:44] LABS: Albumin 1.9 G/DL (3.4-5.0); Bilirubin,Total 0.5 MG/DL (0.20-1.00); Calcium 8.2 MG/DL (8.5-10.1); Ferritin 2366.8 ng/mL (26-388); Osmolality,Calculated 268.1 MOS/KG (273-304); Potassium 3.7 MMOL/L (3.5-5.1); Total Protein 6.4 G/DL (6.4-8.2)
[2022-12-23] MEDS: CETIRIZINE 10 MG TABLET PO SCH (08:45)
[2022-12-23] MEDS: ASCORBIC ACID 500 MG TABLET PO SCH (08:45)
[2022-12-23] MEDS: THIAMINE 100 MG TABLET PO SCH (08:45)
[2022-12-23] MEDS: atenoloL 50 MG TABLET PO SCH (08:45)
[2022-12-23] MEDS: FOLIC ACID 1 MG TABLET PO SCH (08:45)
[2022-12-23] MEDS: PANTOPRAZOLE 40 MG TABLET PO SCH ×2 (08:45→16:45)
[2022-12-23] MEDS: DEXAMETHASONE 4 MG/1 ML VIAL IV SCH (08:46)
[2022-12-23] MEDS: ZINC GLUCONATE 50 MG TABLET PO SCH (08:46)
[2022-12-23] MEDS: REMDESIVIR 100 MG in SODIUM CHLORIDE 0.9% 100 ML IV SCH (08:47)
[2022-12-23] MEDS: ALPRAZolam 0.5 MG TABLET PO PRN (08:57)
[2022-12-23] MEDS ORDERED: CALCIUM (CARBONATE) 500 MG TABLET PO SCH (09:00)
[2022-12-23] MEDS ORDERED: MAGNESIUM OXIDE 400 MG TABLET PO ONE (09:00)
[2022-12-23] MEDS ORDERED: CHOLECALCIFEROL 5,000 UNIT TABLET PO SCH (09:00)
[2022-12-23] MEDS: DOCUSATE SODIUM 100 MG CAPSULE PO SCH (09:21)
[2022-12-23] MEDS: POLYETHYLENE GLYCOL POWDER 17 GM PACK PO SCH (09:22)
[2022-12-23 15:50] VITALS: BP 102/54
== END 2022-12-23 18:52 | DRG 871 ==
LOC: EDUNIT# → N.ED 14:39 → SUATTDRO 17:56 → N.EDINP 17:56 → N.3E 18:51
PROVIDERS: ADMIT Internal Medicine; ATTEND Hospitalist